=== PATIENT | female | born 1955 | race Caucasian/White ===

== ENCOUNTER 2021-04-02 22:18 | Emergency (ER) | payer OTHER ==
[~2021-04-02 22:18] MED LIST: BENTYL 20MG TAB20 MG PO; KEFLEX CAP 500500 MG PO; ZOFRAN ODT 4 MG4 MG PO
== END 2021-04-03 04:28 | disposition home or self-care (01) ==
LOC: ER1 22:18
DX: S20.219A Contusion of unspecified front wall of thorax, initial encounter (principal); F17.200 Nicotine dependence, unspecified, uncomplicated; W19.XXXA Unspecified fall, initial encounter; Y92.239 Unspecified place in hospital as the place of occurrence of the external cause
CPT/HCPCS: 71046; 99283

== ENCOUNTER → 2022-01-23 | Outpatient (CLI) | payer MEDICARE, OTHER | LOC: KOH-I 01-18 14:45 → EXRD 13:50 | DX: R94.4 Abnormal results of kidney function studies (principal); N28.1 Cyst of kidney, acquired | CPT/HCPCS: 76775 ==

== ENCOUNTER → 2022-03-01 | Outpatient (CLI) | payer MEDICARE, OTHER | LOC: HEART 5 09:52 | DX: J44.9 Chronic obstructive pulmonary disease, unspecified (principal) | CPT/HCPCS: 94010; 94729 ==

== ENCOUNTER → 2022-03-16 | Outpatient (CLI) | payer MEDICARE, OTHER ==
[~2022-03-16] MED LIST changes: +LASIX40 MG PO; +[UNRECOGNIZED DRUG - REMARK]
== END ==
LOC: RAD 12:56
DX: R60.0 Localized edema (principal); I51.7 Cardiomegaly
CPT/HCPCS: 36415; 71046; 83880

== ENCOUNTER 2022-03-19 18:57 | Emergency (ER) | payer MEDICARE, OTHER ==
[~2022-03-19 18:57] MED LIST changes: -LASIX40 MG PO; -[UNRECOGNIZED DRUG - REMARK]
[2022-03-19 20:20] LABS: HEMOGLOBIN 10.1 gm/dl (12.3-15.3); RED BLOOD COUNT 3.39 M/UL (4.00-5.10); WHITE BLOOD COUNT 4.7 K/UL (4.5-11.0)
[2022-03-20] MEDS ORDERED: LASIX40 MG PO (00:02)
[2022-03-20] MEDS ORDERED: [UNRECOGNIZED DRUG - REMARK] (00:06)
== END 2022-03-20 00:15 | disposition home or self-care (01) ==
LOC: ER1 18:57
PROVIDERS: Physician Assistant
DX: R06.00 Dyspnea, unspecified (principal); Z88.5 Allergy status to narcotic agent; I11.0 Hypertensive heart disease with heart failure; I50.9 Heart failure, unspecified; E11.9 Type 2 diabetes mellitus without complications; F17.210 Nicotine dependence, cigarettes, uncomplicated; Z88.0 Allergy status to penicillin; Z79.84 Long term (current) use of oral hypoglycemic drugs
CPT/HCPCS: 71045; 80053; 81001; 82550; 82553; 83880; 84484; 85025; 85610; 85730; 93005; 96374; 99285; J1940

== ENCOUNTER → 2022-03-21 | Outpatient (CLI) | payer MEDICARE, OTHER ==
[~2022-03-21] MED LIST changes: +LASIX40 MG PO; +[UNRECOGNIZED DRUG - REMARK]
== END ==
LOC: KOH-I 13:19
DX: Z87.891 Personal history of nicotine dependence (principal); R91.1 Solitary pulmonary nodule
CPT/HCPCS: 71271

== ENCOUNTER → 2022-03-23 | Outpatient (CLI) | payer MEDICARE, OTHER | LOC: LAB 10:16 | PROVIDERS: Family Medicine | DX: I50.9 Heart failure, unspecified (principal) | CPT/HCPCS: 36415; 80048; 83880 ==

== ENCOUNTER 2022-04-19 19:51 | Emergency (ER) | payer MEDICARE, OTHER ==
[2022-04-19 20:13] LABS: HEMOGLOBIN 10.4 gm/dl (12.3-15.3); RED BLOOD COUNT 3.48 M/UL (4.00-5.10); WHITE BLOOD COUNT 6.4 K/UL (4.5-11.0)
== END 2022-04-20 00:14 | disposition home or self-care (01) ==
LOC: ER1 19:51
PROVIDERS: Emergency Medicine
DX: U07.1 COVID-19 (principal)
CPT/HCPCS: 0240U; 71045; 80053; 82550; 82553; 82962; 83880; 84484; 85025; 85379; 93005; 99285; Q9967